=== PATIENT | female | born 1995 | race Caucasian/White ===

== ENCOUNTER 2021-08-12 09:41 | Emergency (ER) | payer OTHER ==
[2021-08-12 09:51] VITALS: RESP 18; TEMP 97.8
[2021-08-12] MEDS ORDERED: IBUPROFEN 600 MG TAB PO STA (10:13)
--- NOTE | 2021-08-12 10:18 | ED ---
General Adult HPI - General Chief complaint: Extremity Injury, Lower Stated complaint: Rt Knee Injury Source: patient, family, RN notes reviewed Mode of arrival: wheelchair Limitations: no limitations - History of Present Illness Initial comments: 25-year-old female presents to the emergency room for a chief complaint of right knee pain. Patient was walking through the house when her dog ran up behind her yesterday and hit the back of her knee. States it buckled. Patient states it is painful to walk on. Patient states it is painful to flex all away. Has not taken Motrin or Tylenol today. Patient has no other complaints at this time including shortness of breath, chest pain, abdominal pain, nausea or vomiting, headache, or visual changes. - Related Data Home Medications Medication Instructions Recorded Confirmed No Known Home Medications 08/12/21 08/12/21 Allergies Allergy/AdvReac Type Severity Reaction Status Date / Time No Known Allergies Allergy Verified 08/12/21 11:13 Review of Systems ROS Statement: Those systems with pertinent positive or pertinent negative responses have been documented in the HPI. ROS Other: All systems not noted in ROS Statement are negative. Past Medical History Past Medical History: No Reported History History of Any Multi-Drug Resistant Organisms: None Reported Past Surgical History: No Surgical Hx Reported Past Psychological History: No Psychological Hx Reported Smoking Status: Never smoker Past Alcohol Use History: None Reported Past Drug Use History: None Reported General Exam Limitations: no limitations General appearance: alert, in no apparent distress Head exam: Present: atraumatic Eye exam: Present: normal appearance, PERRL, EOMI. Absent: scleral icterus, conjunctival injection ENT exam: Present: normal exam, mucous membranes moist Neck exam: Present: normal inspection, full ROM. Absent: tenderness Respiratory exam: Present: normal lung sounds bilaterally. Absent: respiratory distress, wheezes Cardiovascular Exam: Present: regular rate, normal rhythm, normal heart sounds Extremities exam: Present: normal capillary refill (Capillary refill less than 2 seconds, DP pulse 2+ right lower extremity.), joint swelling (Minimal edema right knee.), other (Sensation intact right lower extremity.). Absent: full ROM (Patient has full extension, 90 flexion right knee.), tenderness (no Significant tenderness to the right knee.) Course Vital Signs 08/12/21 09:48 Temperature 97.8 F Pulse Rate 100 Respiratory 18 Rate Blood Pressure 127/85 O2 Sat by Pulse 100 Oximetry Medical Decision Making - Medical Decision Making Vitals are stable. Patient is well-appearing. HPI and physical exam as documented. X-ray shows large suprapatellar joint effusion. Patient was wrapped with an Caden wrap. She has crutches and will remain nonweightbearing. She has an appointment with orthopedics within the week. She will return here for any worsening symptoms. Discussed rice therapy in the meantime. Disposition Clinical Impression: Knee pain, right, Joint effusion of knee Disposition: HOME SELF-CARE Condition: Good Instructions (If sedation given, give patient instructions): Knee Pain (ED) Additional Instructions: Please take Motrin and Tylenol for pain. Rest ice and elevate the right knee. Use Caden wrap while awake. Follow-up with orthopedics at your scheduled appoint ment. Return to the emergency room for any worsening symptoms. Is patient prescribed a controlled substance at d/c from ED?: No Referrals: Tyrone Narvaez DO [Doctor of Osteopathic Medicine] - 1-2 days Time of Disposition: 11:17
--- NOTE | 2021-08-12 10:32 | XR ---
EXAMINATION TYPE: XR knee complete RT DATE OF EXAM: 08/12/2021 CLINICAL HISTORY: Pain after fall injury. TECHNIQUE: Three views of the right knee are obtained. COMPARISON: None. FINDINGS: There is no acute fracture/dislocation evident in right knee. There is mild to moderate na rrowing and spurring medial and lateral tibiofemoral compartments. Increased soft tissue density cons istent with large suprapatellar joint effusion noted on lateral view. IMPRESSION: As above
[2021-08-12 11:48] VITALS: BP 130/89; PULSE 78
== END 2021-08-12 11:48 | disposition home or self-care (01) ==
LOC: EC 09:41
DX: M25.461 Effusion, right knee (principal)
CPT/HCPCS: 99283